=== PATIENT | male | born 1985 | race Caucasian/White ===

== ENCOUNTER → 2021-11-15 10:24 | Outpatient (CLI) | payer BC, SELFPAY ==
--- NOTE | 2021-11-15 10:38 | DI.CT.S_ITS ---
PROCEDURE: CT LUMBAR SPINE WO CON INDICATIONS: Low back pain with radiculopathy TECHNIQUE: Noncontrast 3 mm thick sections acquired from the T12 level to the sacrum. Sagittal and coronal reformats were constructed. For radiation dose reduction, the following was used: automated exposure control. COMPARISON: None. FINDINGS: Image quality: Excellent. Bones: There is normal bony alignment. No acute vertebral body compression fractures. No suspicious lytic or blastic bony lesions. No pars defects. T12-L1: Unremarkable L1-L2: Unremarkable L2-L3: Unremarkable L3-L4: Disc space narrowing with circumferential disc bulge results in mild central stenosis. No foraminal stenosis. L4-L5: Disc height is preserved. There is a mild circumferential disc bulge noted. Mild central stenosis without foraminal stenosis present. L5-S1: Disc space narrowing with posterior disc osteophyte complex results in mild central stenosis. Moderate bilateral foraminal stenosis. Soft tissues: No retroperitoneal masses or hematomas. Visualized aorta is normal in caliber. Right-sided pulse generator noted in the posterolateral subcutaneous tissue. IMPRESSION: 1. Lower lumbar spine degenerative changes results in moderate bilateral foraminal stenosis at L5-S1 Approved by: Michael Santoyo M.D. on 11/15/2021 at 12:51
== END ==
PROVIDERS: Referring Provider Orthopaedic Surgery Orthopaedic Surgery of the Spine; Visit Provider Orthopaedic Surgery Orthopaedic Surgery of the Spine
DX: M47.27 Other spondylosis with radiculopathy, lumbosacral region (principal); M48.07 Spinal stenosis, lumbosacral region; M51.16 Intervertebral disc disorders with radiculopathy, lumbar region
CPT/HCPCS: 72131